=== PATIENT | male | born 1955 | race Caucasian/White ===

== ENCOUNTER 2018-12-23 12:10 | Emergency (ER) | payer OTHER ==
[~2018-12-23] VITALS: Ht 182.9 cm; Wt 88.5 kg
[~2018-12-23 12:10] MED LIST: FURO20 PO; RYTHMOL PO
[2018-12-23 12:54] LABS: BASOPHILS ABSOLUTE AUTO 0.06 K/mm3 (0.00-0.23); BASOPHILS PERCENT AUTO 1 % (0-2); EOSINOPHILS ABSOLUTE AUTO 0.19 K/mm3 (0.00-0.68); EOSINOPHILS PERCENT AUTO 2 % (0-6); Hematocrit 45.7 % (37.0-53.0); IMMATURE GRAN ABSOLUTE AUTO 0.03 K/mm3 (0.00-0.10); IMMATURE GRAN PERCENT AUTO 0 % (0-1); LYMPHOCYTES ABSOLUTE AUTO 1.85 K/mm3 (0.84-5.20); LYMPHOCYTES PERCENT AUTO 16 % (21-46); MONOCYTES ABSOLUTE AUTO 0.95 K/mm3 (0.16-1.47); MONOCYTES PERCENT AUTO 8 % (4-13); Mean Corpuscular HGB 30.9 pg (26.0-34.0); Mean Corpuscular HGB Conc 32.8 g/dL (31.5-36.5); Mean Corpuscular Volume 94 fL (80-100); Mean Platelet Volume 10.9 fL (9.1-12.4); NEUTROPHILS PERCENT AUTO 73 % (41-73); Platelet Count 217 K/mm3 (150-400); RDW Coefficient Variation 13.2 % (11.7-14.2); RDW Standard Deviation 45.4 fL (35.1-46.3); Red Blood Cell Count 4.85 M/mm3 (4.30-5.90); White Blood Cell Count 11.48 K/mm3 (4.00-11.30)
[2018-12-23] MEDS ORDERED: CARV25 PO (13:19)
[2018-12-23 13:21] LABS: Alanine Aminotransfer (ALT/SGP 21 U/L (12-78); Albumin, Blood 3.7 g/dL (3.4-5.0); Albumin/Globulin Ratio 1.1 (0.8-1.8); Alk Phos 64 U/L (50-136); Anion Gap 4 mmol/L (6-16); Aspartate Aminotrans (AST/SGOT 18 U/L (12-37); Blood Urea Nitrogen 17 mg/dL (8-24); Bun/Creatinine Ratio 18.3 (12.0-20.0); CO2, Blood 28 mmol/L (21-32); Calcium, Blood 8.7 mg/dL (8.5-10.1); Chloride, Blood 104 mmol/L (98-108); Creatinine, Blood 0.93 mg/dL (0.60-1.20); Globulin, Blood 3.3 g/dL (2.2-4.0); Glomerular Filtration Rate >60 (60-); Glucose, Blood 114 mg/dL (70-99); Potassium, Blood 4.3 mmol/L (3.5-5.5); Sodium, Blood 136 mmol/L (136-145)
== END 2018-12-23 15:05 | disposition home or self-care (01) ==
LOC: ER 12:10
PROVIDERS: Physician Assistant
DX: R10.9 Unspecified abdominal pain (principal); Z87.891 Personal history of nicotine dependence; Z79.899 Other long term (current) drug therapy
CPT/HCPCS: 36415; 74177; 80053; 83690; 85025; 93005; 93010; 96361; 96374-59; 96375; 99284-25; J2405; J3010; J7030; Q9967

== ENCOUNTER 2021-12-03 11:59 | Day surgery (SDC) | payer MEDICARE ==
[~2021-12-03] VITALS: Ht 182.9 cm; Wt 90.0 kg
[~2021-12-03 11:59] MED LIST changes: +CARV25 PO; +ELIQUIS5 M2 PO; +LISI5 PO
--- NOTE | 2021-12-03 15:30 | NUR ---
PATIENT RETURNED TO [facility] ROOM ALERT AND RESPONDS APPROPRIATLEY.
--- NOTE | 2021-12-03 15:59 | NUR ---
ASHLEY([employer] REP) ASSISTING PATIENT ON SETTING UP REMOTE MONITORING OF PACEMAKER.
--- NOTE | 2021-12-03 16:30 | NUR ---
SITE DRESSING D&I. NO HEMATOMA, NO BLEEDING. ICE PACK IN PLACE.
--- NOTE | 2021-12-03 17:37 | NUR ---
PT HAS BEEN TO AND FROM X-RAY WITH [facility].
--- NOTE | 2021-12-03 18:00 | NUR ---
IV ANCEF 1 GRAM INFUSING AT THIS TIME. LEFT CHEST SITE STABLE. NO SWELLING NOTED OR BLEEDING.
--- NOTE | 2021-12-03 18:18 | NUR ---
PT DRESSED WITH ASSIST FROM . SITE REMAINS STABLE. SALINE LOCK REMOVED WITH CATHETER INTACT.
--- NOTE | 2021-12-03 18:19 | NUR ---
IV ANCEFT INFUSED.
--- NOTE | 2021-12-03 18:26 | NUR ---
DISCHARGE INSTRUCTIONS REVIEWED WITH PT AND WITH , BOTH VERBALIZE UNDERSTANDING. PACEMAKER SITE REMAINS STABLE
--- NOTE | 2021-12-03 18:51 | NUR ---
pt site remians stable, some pain. pt instructed to take tylenol and ice for discomfort.
--- NOTE | 2021-12-03 18:54 | NUR ---
PT GETTING CAR, PT BEING DISCHARGED PER W/C WITH ONE STAFF.
== END 2021-12-03 22:49 | disposition home or self-care (01) ==
LOC: MHTC 11:59
DX: I49.5 Sick sinus syndrome (principal); I42.8 Other cardiomyopathies; I10 Essential (primary) hypertension; Z79.01 Long term (current) use of anticoagulants; E78.00 Pure hypercholesterolemia, unspecified; I48.19 Other persistent atrial fibrillation; Z88.5 Allergy status to narcotic agent
CPT/HCPCS: 33207; 71046; 99152; 99153; C1781; C1786; C1894; C1898; J0690; J1644; J2250; J3010; J7030; J7040; Q9967